=== PATIENT | female | born 1985 | race Asian ===

== ENCOUNTER 2019-12-30 09:51 | Outpatient (CLI) | payer OTHER ==
[~2019-12-30] VITALS: Ht 149.9 cm; Wt 56.3 kg
== END 2019-12-30 10:53 | disposition home or self-care (01) ==
LOC: LDOP 09:51
PROVIDERS: ATTEND Obstetrics & Gynecology
DX: O24.419 Gestational diabetes mellitus in pregnancy, unspecified control (principal); O40.3XX0 Polyhydramnios, third trimester, not applicable or unspecified; O99.013 Anemia complicating pregnancy, third trimester; Z3A.38 38 weeks gestation of pregnancy
CPT/HCPCS: 59025; 82962; 99201; G0463